=== PATIENT | male | born 1980 | race African-American/Black ===

== ENCOUNTER 2020-09-28 15:00 | Emergency (ER) | payer OTHER, SELFPAY ==
[2020-09-29 06:00] LABS: SARS-CoV-2 N Gene Positive; SARS-CoV-2 S Gene Positive; SARS-CoV-2 by NAA DETECTED (NotDetected); SARS-CoV-2 orf1ab Positive
[2020-09-29 17:15] LABS: SARS-CoV-2 MS2 Negative
== END 2020-09-28 15:15 | disposition home or self-care (01) ==
LOC: ERS 15:00
DX: U07.1 COVID-19 (principal)
CPT/HCPCS: 87635; 99283; U0003